=== PATIENT | male | born 1965 | race Hispanic/Latino ===

== ENCOUNTER → 2025-01-11 | Outpatient (CLI) | payer BC ==
[2025-01-11 13:14] LABS: ASPARTATE AMINOTRANSFERASE 83.0 U/L (10-37); CREATININE 0.9 mg/dL (0.5-1.3); GLOMERULAR FILTR. RATE CALC 99.0 mL/min (>90); GLUCOSE,RANDOM 104.0 mg/dL (70-105); SODIUM SERUM 141.0 mmol/L (136-145); TOTAL PROTEIN, SERUM 7.9 g/dL (6.0-8.3); UREA NITROGEN, BLOOD 14.0 mg/dL (7-18)
== END | disposition home or self-care (01) ==
LOC: LAB 12:30
PROVIDERS: ATTEND Nurse Practitioner Family
DX: Q61.00 Congenital renal cyst, unspecified (principal)
CPT/HCPCS: 36415; 80053

== ENCOUNTER → 2025-01-13 | Outpatient (CLI) | payer BC ==
[~2025-01-13] MED LIST: IOHEXOL-350 75 ML VIAL IV ONE
--- NOTE | 2025-01-19 14:28 | HMCIMG ---
EXAM: CT Abdomen with IV contrast CLINICAL HISTORY: Congenital renal cyst. TECHNIQUE: Thin collimated axial CT images of the abdomen were obtained with sagittal and coronal reformatted images also submitted. CT scan is done according to ALARA (As Low As Reasonably Achievable). CONTRAST: Yes. COMPARISON: None. FINDINGS: Unremarkable visualized lung parenchyma. No focal abnormality within the liver, gallbladder, pancreas, spleen or adrenal glands. A lobulated cystic lesion 5.0 x 3.1 cm from the right kidney lower pole with thin septation within. Another small 6 mm posterior cortical cyst from the right kidney interpolar region. No obvious septations or calcification within. Type I Bosniak cyst. No follow-up as indicated. Mild hiatus hernia. There is no obvious bowel wall thickening. Bowel loops are normal in caliber without evidence of obstruction or ileus. The appendix is normal. There is no abnormality within the urinary bladder. Abdominal and pelvic vessels are patent. No lymphadenopathy. No free fluid. There is no acute osseous abnormality. IMPRESSIONS: No acute process in the abdomen. A lobulated cystic lesion 5.0 x 3.1 cm from the right kidney lower pole with thin septation within. Another small 6 mm posterior cortical cyst from the right kidney interpolar region. No obvious septations or calcification within. Type I Bosniak cyst. No follow-up as indicated. Mild hiatus hernia. /[place]
== END | disposition home or self-care (01) ==
LOC: RAH 08:44
PROVIDERS: ATTEND Nurse Practitioner Family
DX: K44.9 Diaphragmatic hernia without obstruction or gangrene (principal); Q61.00 Congenital renal cyst, unspecified
CPT/HCPCS: 74160; Q9967